=== PATIENT | female | born 1980 | race Caucasian/White ===

== ENCOUNTER → 2025-03-16 | Outpatient (CLI) | payer OTHER ==
--- NOTE | 2025-03-16 21:10 | MR ---
EXAMINATION TYPE: MR cspine/tspine wo con DATE OF EXAM: 03/16/2025 6:57 PM COMPARISON: None. 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 FINDINGS: Alignment: The cervical vertebral bodies have preserved heights. Alignment is within normal limits gi girma patient positioning. Bones: Bone signal is within normal limits. No abnormal STIR signal. Cord: The spinal cord is unremarkable with regards to their signal intensity and morphology. Discs: Minimal multilevel disc desiccation without disc height loss. C2-C3: No significant disc pathology. The spinal canal is patent. No neural foraminal stenosis. C3-C4: No significant disc pathology. The spinal canal is patent. No neural foraminal stenosis. C4-C5: No significant disc pathology. The spinal canal is patent. No neural foraminal stenosis. C5-C6: No significant disc pathology. The spinal canal is patent. No neural foraminal stenosis. C6-C7: No significant disc pathology. The spinal canal is patent. No neural foraminal stenosis. C7-T1: No significant disc pathology. The spinal canal is patent. No neural foraminal stenosis. Other: None. IMPRESSION: 1. No evidence for disc herniation or significant spinal canal stenosis. The spinal cord is unremarka ble. 2. No significant degenerative disc disease of the cervical spine. FINDINGS: The thoracic vertebral bodies have preserved heights and alignment. The osseous structure have normal signal intensity. Thoracic spinal cord appears unremarkable. Tiny left paracentral disc protrusion at T6-T7. Tiny right paracentral disc protrusion at T7-T8. Mini mal broad-based disc bulge at T10-T11. No significant spinal canal stenosis of the thoracic spine andrea ntified. No neural foraminal stenosis at any thoracic level. Intervertebral discs demonstrate normal signal intensity. Multiple thin wall T2 hyperintense hepatic cysts identified with largest in the right hepatic lobe me asured 3.1 cm. 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 The spinal cord is unremarkable. [facility], , 03/16/2025 9:07 PM
== END | disposition home or self-care (01) ==
LOC: RADMRIMAIN 17:54
PROVIDERS: ATTEND Emergency Medicine
DX: M51.34 Other intervertebral disc degeneration, thoracic region (principal); G95.0 Syringomyelia and syringobulbia
CPT/HCPCS: 72141; 72146